=== PATIENT | male | born 1960 | race African-American/Black ===

== ENCOUNTER 2021-01-03 10:18 | Inpatient (IN) | payer OTHER ==
[~2021-01-03] VITALS: Ht 188 cm; Wt 113.4 kg
[2021-01-03 10:21] VITALS: BP 167/96
[2021-01-03] MEDS ORDERED: METFORMIN HCL500 M3 PO (10:33)
[2021-01-03] MEDS ORDERED: FLOMAX0.4 MG PO (10:34)
[2021-01-03] MEDS ORDERED: SKELAXIN 800 M800 M1 PO (10:34)
[2021-01-03] MEDS ORDERED: TYLENOL325 MG PO (10:35)
[2021-01-03 10:49] LABS: ABSOLUTE NEUTROPHILS 4.2 thou/uL (1.4-8.2); BASOPHILS 1.2 % (0.0-2.0); EOSINOPHILS 3.9 % (0.0-3.0); HEMATOCRIT 43.7 % (42.0-52.0); HEMOGLOBIN 15.5 gm/dL (14.0-18.0); LYMPHOCYTES 27.3 % (24.0-44.0); MCH 30.6 pg (26.0-34.0); MCHC 35.4 g/dL (28.0-37.0); MCV 86.6 fL (80.0-100.0); MONOCYTES 7.5 % (1.0-8.0); PLATELET COUNT 195 thou/uL (150-400); POLYS 60.1 % (36.0-66.0); RBC 5.05 mil/uL (4.50-6.00); RDW 12.9 % (10.5-14.5); WBC 6.9 thou/uL (4.0-11.0)
[2021-01-03 10:52] LABS: CALCIUM 8.9 mg/dL (8.5-10.1); CREATININE 1.4 mg/dL (0.7-1.3); POTASSIUM 3.7 mmol/L (3.5-5.1)
[2021-01-03 11:01] LABS: ALBUMIN 3.8 g/dL (3.4-5.0); TOTAL BILIRUBIN 0.6 mg/dL (0.2-1.0); TOTAL PROTEIN 7.4 g/dL (6.4-8.2); TROPONIN-I 0.31 ng/mL (<0.06)
[2021-01-03 12:22] VITALS: BP 156/82
[2021-01-03 12:48] VITALS: BP 146/88
--- NOTE | 2021-01-03 14:38 | NUR ---
RECEIVED PT FROM DATA CONTROL ASSISTANT AT 1425. PT CURRENTLY ON BEDREST UNTIL THE DESIGNATED TIME. ECHO IN ROOM. PT WILL BE GETTING AN ECHO THEN ADMISSION PROCESS WILL BEGIN.
--- NOTE | 2021-01-03 15:16 | EKG ---
[place] [address] [facility] [place] [address] ELECTROCARDIOGRAM REPORT Name: JOAQUÍN MUNOZ Room #: 214-P ADM IN M.R.#: [id number] Admission: 01/03/21 Attend Phys: Kun Keyes MD Discharge: Date of : 62 Report #: [id number] [facility] ED Test Date: 2021-01-03 Test Time: 10:25:48 Pat Name: JOAQUÍN MUNOZ Department: Room: 214 Gender: M Carry Out Clerk: MPARK : 1960 Requested By: Felicity Yuan Order Number: [id number] : Alexandro Messina Measurements Intervals [place] Rate: 83 P: 57 [place]: 144 QRS: 25 QRSD: 102 T: 84 QT: 405 QTc: 476 Interpretive Statements Sinus rhythm Probable left atrial enlargement Borderline repolarization abnormality Borderline prolonged QT interval No previous ECG available for comparison Electronically Signed On 01-03-2021 15:16:27 CDT by Alexandro Messian [email or web address] <ELECTRONICALLY SIGNED> By: Alexandro Messina MD, [facility] 01/03/21 1516 1025 1025 Alexandro Messina MD, FACC /EPI
--- NOTE | 2021-01-03 15:17 | 2DMMODE ---
[facility] [place] [address] 2 D/M-MODE ECHOCARDIOGRAM Name: JOAQUÍN MUNOZ Room #: 214-P ADM IN M.R.#: [id number] Admission: 01/03/21 Attend Phys: Kun Keyes MD Discharge: Date of : 62 Report #: [id number] THIS REPORT FOR: cc: FAM - Family physician unknown FAM - Family physician unknown Suresh Callejas MD [facility] ~ APPROVED REPORT Study performed: 01/03/2021 14:25:16 EXAM: Comprehensive 2D, Doppler, and color-flow Echocardiogram Patient Location: Bedside Room #: 214 Status: routine BSA: 2.43 HR: 67 bpm BP: 146/88 mmHg Rhythm: NSR Other Information Study Quality: Adequate Technically limited study due to flat on back, lungs interference, obesity. Indications Chest pain, NSTEMI status post PCI. Hx: IA, HTN, HLD, DM, tobacco. 2D Dimensions RVDd: 35.04 mm IVSd: 13.66 (7-11mm) LVOT Diam: 21.83 (18-24mm) LVDd: 48.92 mm PWd: 11.12 (7-11mm) LVDs: 39.09 (25-40mm) Left Atrium: 28.31 (27-40mm) Aortic Root: 35.25 mm Volumes Left Atrial Volume (Systole) Single Plane 4CH: 48.03 mL Single Plane 2CH: 32.79 mL LA ESV Index: 21.00 mL/m2 Aortic Valve AoV Peak Shahzad.: 1.10 m/s [facility] [address] [place] [address] 2 D/M-MODE ECHOCARDIOGRAM Name: JOAQUÍN MUNOZ Room #: 214-P ADM IN M.R.#: [id number] Admission: 01/03/21 Attend Phys: Kun Keyes, Discharge: Date of : 62 Report #: [id number] AO Peak Gr.: 4.86 mmHg LVOT Max P.83 mmHg LVOT Max V: 0.98 m/s JENNIFER Vmax: 3.32 cm2 Mitral Valve E/A Ratio: 0.7 MV Decel. Time: 246.39 ms MV E Max Shahzad.: 0.48 m/s MV A Shahzad.: 0.68 m/s MV PHT: 71.45 ms IVRT: 103.81 ms Pulmonary Valve PV Peak Shahzad.: 1.21 m/s PV Peak Gr.: 5.82 mmHg Pulmonary Vein P Vein S: 0.34 m/s P Vein A: 0.21 m/s P Vein D: 0.26 m/s P Vein A Dur.: 156.9 msec P Vein S/D Ratio: 1.31 Tricuspid Valve TR Peak Shahzad.: 2.05 m/s RAP Estimate: 5.00 mmHg TR Peak Gr.: 17.00 mmHg PA Pressure: 22.00 mmHg Left Ventricle The left ventricle is normal size. There is normal LV segmental wall motion. Mild basal septal hypertrophy is present. The left ventricular systolic function is normal. The left ventricular ejection fraction is within the normal range. LVEF is 50-55%. Mild diastolic dysfunction Right Ventricle The right ventricle is normal size. The right ventricular systolic function is normal. Atria The left atrium size is normal. The right atrium size is normal. Aortic Valve The aortic valve is normal in structure. No aortic regurgitation is present. There is no aortic valvular stenosis. Mitral Valve The mitral valve is normal in structure. Trace mitral regurgitation. [facility] [address] [place] [address] 2 D/M-MODE ECHOCARDIOGRAM Name: JOAQUÍN MUNOZ Room #: 214-P [facility] IN M.R.#: [id number] Admission: 01/03/21 Attend Phys: Kun Keyes, Discharge: Date of : 62 Report #: [id number] No evidence of mitral valve stenosis. Tricuspid Valve The tricuspid valve is normal in structure. Trace tricuspid regurgitation. Estimated PAP is 20-25mmHg. Pulmonic Valve The pulmonary valve is normal in structure. Mild pulmonic regurgitation. Great Vessels The aortic root is normal in size. Ascending aorta is not well visualized. IVC is normal in size and collapses >50% with inspiration. Pericardium There is no pericardial effusion. <Conclusion> The left ventricular systolic function is normal. There is normal LV segmental wall motion. LVEF is 50-55%. Mild diastolic dysfunction The aortic valve is normal in structure. No aortic regurgitation or stenosis. The mitral valve is normal in structure. Trace mitral regurgitation. Trace tricuspid regurgitation. Estimated pulmonary artery pressure of 20-25mmHg. There is no pericardial effusion. <ELECTRONICALLY SIGNED> By: Suresh Callejas MD, FACC 01/03/21 1517 16 151 Suresh Callejas MD, FACC /INF
--- NOTE | 2021-01-03 15:27 | CATHLAB ---
[facility] [place] [address] INVASIVE PROCEDURE REPORT Name: JOAQUÍN MUNOZ Room #: 214-P ADM IN M.R.#: [id number] Admission: 01/03/21 Attend Phys: Kun Keyes MD Discharge: Date of : 62 Report #: [id number] THIS REPORT FOR: cc: FAM - Family physician unknown FAM - Family physician unknown Suresh Callejas MD [facility] ~ APPROVED REPORT Study performed: 01/03/2021 12:43:15 Patient Details Patient Status: ED Room #: The patient is a 60 year-old male Event Personnel Suresh Callejas Motorcycle Racer, Helen Montelongo RTR Monitor, Jean Ledbetter RTR Scrub, Cassy Cochran RN geographic information systems analyst Performed Art Access - R femoral artery* Left Heart Cath w/or w/o Coronaries [id number] [facility] [address] Place w/wo Plasty Single OM 513370 Hemostasis w/ Mynx 49863 Initial Mod Sed Same Phys/QHP Gr5y 388982 24629 Mod Sed Same Phys/QHP Ea 660909 Procedure Narrative The patient was brought urgently to the Cardiac Catheterization Laboratory and was prepped and draped in a sterile manner. The Right Groin^ was infiltrated with 1% Lidocaine subcutaneous anesthesia. A PINNACLE 6FR Sheath #[id number] sheath was inserted into the RFA^. Coronary angiography was performed using coronary diagnostic catheters. The right coronary system was accessed and visualized with a JR4 catheter. The left coronary system was accessed and visualized with a JL4 catheter. The left ventricle was accessed and visualized with a ANGLED PIGTAIL catheter. Left ventriculogram was performed in 30 degree projection. Closure device was deployed with a Fr MYNXGRIP 6/7F #[id number]. The patient tolerated the procedure well and there were no complications associated with the procedure. There was no hematoma. Intraoperative Conscious Sedation Sedation start time: 13:06 Case end Time: 13:58 Fentanyl 50 mcg Versed 1 mg [facility] [place] [address] [place] [address] INVASIVE PROCEDURE REPORT Name: JOAQUÍN MUNOZ Room #: 214-P [facility] IN .R.#: [id number] Admission: 01/03/21 Attend Phys: Kun Keyes, Discharge: Date of : 62 Report #: [id number] Fluoro Time: 7.20 minutes Dose: DAP 01722.40 cGycm2 2258 mGy Contrast Type and Amount: Visipaque 260 ml Coronary Angiography The patient's coronary anatomy is left dominant. Diagnostic Cath Left Main Normal left main LAD Mild proximal LAD plaquing Diagonal 1 Moderate sized first diagonal with mild proximal plaquing OM1 Moderately large OM1 with long severe variable 70-95% stenosis OM2 Bifurcating OM 2 with mild proximal plaquing Right Coronary Moderate-sized nondominant right coronary with minimal plaquing Left Ventriculography The left ventricle is normal in size with normal contractility. The left ventricular ejection fraction is estimated to be 60-65%60%. Left ventricular wall motion abnormalities are not present. There is no mitral insufficiency. Hemodynamics The aortic pressure is 183/58 mmHg with a mean of 119 mmHg. The left ventricular pressure is 159/11 mmHg with a mean of mmHg. The left ventricular end diastolic pressure is 15 mmHg. PCI Technique Lesion Anticoagulation was achieved with Heparin, Integrilin. Patient was preloaded with Effient. Percutaneous coronary intervention was performed on the first obtuse marginal branch segment. The lesion stenosis prior to intervention was 99% with PARISH 3 flow. A LAUNCHER 6FR EBU 3.5 #[id number] Guide Catheter was used to engage the ostium. A Luge Wire .014 x 182CM #[id number] Interventional Guidewire was used to cross the lesion. BALLOON DILATION A Balloon catheter TREK RX 2.25 X 15 #[id number] was inserted and inflated up to 8.00atm for 31seconds. Additional Inflation: 8.00atm for 30seconds. STENT DEPLOYMENT A drug-eluting stent RESOLUTE MITCHELL RX 2.25 X 34 #[id number] was inserted and inflated up to 15.00atm for 31seconds. [facility] [address] [place] [address] INVASIVE PROCEDURE REPORT Name: JOAQUÍN MUNOZ Room #: 214-P [facility] IN M.R.#: [id number] Admission: 01/03/21 Attend Phys: Kun Keyes, Discharge: Date of : 62 Report #: [id number] POST STENT DEPLOYMENT BALLOON DILATION A Balloon catheter TREK NC RX 2.25 X 15 #[id number] was inserted and inflated up to 22.00atm for 29seconds. Additional Inflation: 22.00atm for 30seconds. Additional Inflation: 22.00atm for 20seconds. Final angiography reveals 0 % stenosis with PARISH 3 flow. Conclusion 1. Normal global and regional left ventricular systolic function. EF 50-55% 2. Normal left main 3. Mild LAD, circumflex, and right coronary artery plaquing. Left dominant circulation 4. First marginal branch with severe 99% proximal to mid stenosis, stented with a 2.25 x 34 mm Resolute medicated stent, post-dilated to 2.4mm Recommendations Smoking Cessation Cardiac Rehabilitation Referral [facility] <ELECTRONICALLY SIGNED> By: Suresh Callejas MD, [facility] 01/03/21 1527 1527 152 Suresh Callejas MD, FAC /INF
[2021-01-03 20:26] VITALS: BP 141/84
[2021-01-04] VITALS: BP 150/82
[2021-01-04 03:06] LABS: GLYCOHEMOGLOBIN (HGB A1C) 10.1 % (4.8-5.6)
[2021-01-04 04:01] VITALS: BP 150/89
--- NOTE | 2021-01-04 05:38 | NUR ---
ASSESSMENTS CHARTED, MEDS CHARTED GIVEN. PATIENT VISITING FROM [place], [place] WENT TO BEHAVIORAL HEALTH COUNSELOR, RECEIVED STENT TO OM. SR/SB ON TELEMETRY. C/O PAIN IN RIGHT GROIN AFTER BOWEL MOVEMENT IN BATHROOM. UP AT [place]AD[place] IN ROOM. ON MAINTENANCE FLUIDS. FALL PRECAUTIONS IN PLACE DURING SHIFT.
[2021-01-04 07:42] VITALS: BP 147/95
[2021-01-04] MEDS ORDERED: ASPIRIN325 PO (08:39)
[2021-01-04] MEDS ORDERED: ZESTRIL40 MG PO (08:39)
[2021-01-04] MEDS ORDERED: CLOPIDOGREL75 MG PO (08:39)
[2021-01-04] MEDS ORDERED: LIPITOR40 MG PO (08:39)
--- NOTE | 2021-01-04 09:05 | EKG ---
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: kf : 1960 Requested By: Felicity Yuan Order Number: [id number] MD: Suresh Callejas Measurements Intervals [place] Rate: 79 P: 53 [place]: 146 QRS: 15 QRSD: 103 T: 48 QT: 404 QTc: 464 Interpretive Statements Sinus rhythm Atrial premature complex Borderline ST depression, diffuse leads Compared to ECG 01/03/2021 10:25:48 Atrial premature complex(es) now present ST (T wave) deviation is more pronounced Electronically Signed On 01-04-2021 9:04:47 CDT by Suresh Callejas [email or web address] <ELECTRONICALLY SIGNED> By: Suresh Callejas MD, [facility] 01/04/21 0904 1149 1149 Suresh Callejas MD, [facility] /EPI
--- NOTE | 2021-01-04 09:06 | EKG ---
[place] [address] [facility] [place] [address] ELECTROCARDIOGRAM REPORT Name: JOAQUÍN MUNOZ Room #: 214-P ADM IN M.R.#: [id number] Admission: 01/03/21 Attend Phys: Kun Keyes MD Discharge: Date of : 62 Report #: [id number] [facility] Test Date: 2021-01-03 Test Time: 15:11:10 Pat Name: JOAQUÍN MUNOZ Department: Room: 214 P Gender: M Facing Slitter: SYL : 1960 Requested By: Suresh Callejas Order Number: [id number] MD: Suresh Callejas Measurements Intervals [place] Rate: 49 P: 62 [place]: 160 QRS: 11 QRSD: 113 T: 33 QT: 489 QTc: 442 Interpretive Statements Sinus bradycardia Nonspecific ST segment abnormality Compared to ECG 01/03/2021 11:49:46 ST segment abnormalities less pronounced Electronically Signed On 01-04-2021 9:06:38 CDT by Suresh Callejas [email or web address] <ELECTRONICALLY SIGNED> By: Suresh Callejas MD, [facility] 01/04/21905 10 10 Suresh Callejas MD, FACC /EPI
--- NOTE | 2021-01-04 09:20 | EKG ---
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 Gin: EVELYN : 1960 Requested By: Suresh Callejas Order Number: [id number] MD: Suresh Callejas Measurements Intervals [place] Rate: 66 P: 66 [place]: 151 QRS: 19 QRSD: 107 T: 58 QT: 479 QTc: 502 Interpretive Statements Sinus rhythm Prolonged QT interval Compared to ECG 01/03/2021 15:11:10 Prolonged QT interval now present Sinus bradycardia no longer present Electronically Signed On 01-04-2021 9:20:00 CDT by Suresh Callejas [email or web address] <ELECTRONICALLY SIGNED> By: Suresh Callejas MD, [facility] 01/04/21919 7 7 Suresh Callejas MD, FACC /EPI
[2021-01-04 11:22] VITALS: BP 149/105
[2021-01-04 12:44] LABS: HEMATOCRIT 43.1 % (42.0-52.0); HEMOGLOBIN 15.2 gm/dL (14.0-18.0); MCH 30.5 pg (26.0-34.0); MCHC 35.2 g/dL (28.0-37.0); MCV 86.8 fL (80.0-100.0); PLATELET COUNT 189 thou/uL (150-400); RBC 4.96 mil/uL (4.50-6.00); RDW 12.8 % (10.5-14.5); WBC 7.7 thou/uL (4.0-11.0)
[2021-01-04 13:14] LABS: ANION GAP 11 mmol/L (7-16); BUN 7 mg/dL (7-18); CALCIUM 8.7 mg/dL (8.5-10.1); CHLORIDE 104 mmol/L (98-107); CO2 24 mmol/L (21-32); CREATININE 1.1 mg/dL (0.7-1.3); GLUCOSE 203 mg/dL (74-106); SODIUM 139 mmol/L (136-145)
[2021-01-04 13:19] LABS: ABSOLUTE NEUTROPHILS 4.6 thou/uL (1.4-8.2)
[2021-01-04 13:20] LABS: CHOLESTEROL 221 mg/dL (<200); HDL CHOLESTEROL 44 mg/dL (>40); LDL CHOLESTEROL 147 mg/dL (<100); MAGNESIUM 2.2 mg/dL (1.8-2.4); TRIGLYCERIDE 150 mg/dL (<150); VLDL 30 mg/dL (<40)
[2021-01-04 13:38] VITALS: BP 147/95
--- NOTE | 2021-01-04 13:56 | NUR ---
Patient got discharge education, verbalized understanding. left with a wheelchair with his personal belonging.
== END 2021-01-04 15:29 | disposition home or self-care (01) | DRG 246 ==
LOC: ER 10:18 → EROBS 12:52 → 2N 12:52
PROVIDERS: Emergency Medicine; Nurse Practitioner; ADMIT Internal Medicine; ATTEND Internal Medicine
DX: I21.4 Non-ST elevation (NSTEMI) myocardial infarction (principal); N17.0 Acute kidney failure with tubular necrosis; I16.0 Hypertensive urgency; Z20.822 Contact with and (suspected) exposure to COVID-19; E78.5 Hyperlipidemia, unspecified; I20.0 Unstable angina; I10 Essential (primary) hypertension; E11.9 Type 2 diabetes mellitus without complications; F17.210 Nicotine dependence, cigarettes, uncomplicated; N40.0 Benign prostatic hyperplasia without lower urinary tract symptoms; E66.9 Obesity, unspecified; F12.90 Cannabis use, unspecified, uncomplicated; Z60.2 Problems related to living alone; Z79.82 Long term (current) use of aspirin; Z79.899 Other long term (current) drug therapy; Z88.6 Allergy status to analgesic agent; Z82.49 Family history of ischemic heart disease and other diseases of the circulatory system; Z68.32 Body mass index [BMI] 32.0-32.9, adult; Z83.3 Family history of diabetes mellitus; Z71.6 Tobacco abuse counseling
CPT/HCPCS: 10081